=== PATIENT | male | born 1975 | race Caucasian/White ===

== ENCOUNTER 2019-02-01 11:30 | Emergency (ER) | payer SELFPAY ==
[2019-02-01 11:45] VITALS: BP 124/54; PULSE 55; RESP 16; TEMP 36.1; O2SAT 98; BMI 21.5
[2019-02-01 12:30] VITALS: BP 107/51; PULSE 72; RESP 18; O2SAT 100
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
--- NOTE | 2019-02-01 12:48 | DI.CT.S_ITS ---
PROCEDURE: CT HEAD/BRAIN WO CON INDICATIONS: head contusion 2 days ago, syncopal episode TECHNIQUE: Noncontrast 4.5 mm thick angled axial sections acquired from the foramen magnum to the vertex, with coronal and sagittal reformats. For radiation dose reduction, the following was used: automated exposure control, adjustment of mA and/or kV according to patient size. COMPARISON: None. FINDINGS: Image quality: Diagnostic CSF spaces: Basal cisterns are patent. No extra-axial fluid collections. Ventricles are normal in size and shape. Brain: No midline shift. No intracranial masses or hemorrhage. Wilder-white matter interface is normal. There is a subtle focus of low attenuation involving the right frontal lobe (image 12, series 2) which is nonspecific. Skull and face: Calvarium and visualized facial bones are intact, without suspicious lesions. Sinuses: There is mild mucosal thickening involving the ethmoid air cells. Otherwise, the paranasal sinuses are clear. IMPRESSION: 1. No acute intracranial hemorrhage. 2. Subtle area of low attenuation involving the anterior right frontal lobe deep white matter is of uncertain significance. MRI may be helpful for better characterization, if indicated. 3. Mild paranasal sinus disease. Dictated by: Chaitanya Jackson M.D. on 02/01/2019 at 12:23 Approved by: Chaitanya Jackson M.D. on 02/01/2019 at 12:28
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
[2019-02-01 13:03] LABS: Add Manual Diff / Slide Review NO; Basophils Absolute Auto 0 /uL (0-100); Basophils Percent Auto 0.4 % (0-2); Eosinophils Absolute Auto 100 /uL (0-450); Eosinophils Percent Auto 0.9 % (2-4); Hematocrit 48.3 % (41-53); Hemoglobin 16.1 g/dL (13.5-17.5); Lymphocytes Absolute Auto 1000 /uL (1100-4500); Lymphocytes Percent Auto 7.6 % (25-40); Mean Corpuscular HGB Conc 33.4 % (30-36); Mean Corpuscular Hemoglobin 32.3 PG (26-34); Mean Corpuscular Volume 96.7 fL (80-100); Monocytes Absolute Auto 900 /uL (0-900); Monocytes Percent Auto 7.1 % (3-14); Neutrophils Absolute Auto 11100 /uL (1500-7000); Platelet Count 240 X10^3/uL (150-400); Red Blood Cell Count 4.99 X10^6/uL (4.5-5.9); Red Cell Distribution Width 13.5 % (11.6-14.8); White Blood Cell Count 13.2 X10^3/uL (4.5-11.0)
[2019-02-01 13:16] LABS: Alanine Aminotransferase 31 IU/L (21-72); Albumin 4.3 g/dL (3.5-5.0); Albumin Globulin Ratio 1.6 (1.0-2.8); Alkaline Phosphatase 49 U/L (38-126); Aspartate Aminotransferase 24 IU/L (17-59); Bilirubin Total 0.4 mg/dL (0.2-1.3); Blood Urea Nitrogen 12 mg/dL (9-20); Calcium 8.9 mg/dL (8.4-10.2); Carbon Dioxide 31 mmol/L (22-32); Chloride 98 mmol/L (98-107); Creatine Kinase 71 U/L (55-170); Estimated Glomerular Filt Rate > 60.0 mL/min (>60); Ethanol (ETOH) < 10 mg/dL; Globulin 2.7 g/dL (1.7-4.1); Glucose 186 mg/dL (70-100); HEMOLYSIS 19 (0-50); Potassium 4.9 mmol/L (3.4-5.1); Sodium 136 mmol/L (137-145)
[2019-02-01 13:27] LABS: Troponin I < 0.012 ng/mL (0.01-0.034)
[2019-02-01 13:30] VITALS: BP 127/77; PULSE 57; RESP 18; O2SAT 100
[2019-02-01 14:25] VITALS: BP 123/77; PULSE 59; RESP 16; O2SAT 99
== END 2019-02-01 14:25 | disposition home or self-care (01) ==
PROVIDERS: Emergency Provider Internal Medicine
DX: S06.0X0A Concussion without loss of consciousness, initial encounter (principal); R55 Syncope and collapse; R11.2 Nausea with vomiting, unspecified; R51 Headache; V28.0XXA Motorcycle driver injured in noncollision transport accident in nontraffic accident, initial encounter
CPT/HCPCS: 36415; 70450; 80053; 80320; 82550; 84484; 85025; 93005; 99283; 99285